=== PATIENT | male | born 2005 | race Caucasian/White ===

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

== ENCOUNTER 2025-03-23 11:03 | Outpatient (CLI) | payer OTHER, SELFPAY ==
[2025-03-23 12:00] LABS: Hematocrit 47.6 % (42.0-52.0); Hemoglobin 15.6 g/dL (14.1-18.0); Immature Granulocytes % 0.3 %; Mean Corpuscular HGB Conc 32.8 g/dL (31.8-35.4); Mean Corpuscular Hemoglobin 27.9 pg (27.0-31.2); Mean Corpuscular Volume 85.2 fl (80-94); Nucleated Red Blood Cells % 0 %; Platelet Count 230 K/mm3 (142-424); Red Blood Count 5.59 M/mm3 (4.60-6.20); Red Cell Distribution Width-SD 39.9 fL; White Blood Count 7.9 K/mm3 (4.5-13.0)
[2025-03-23 12:23] LABS: Alanine Aminotransferase 49 U/L (12-78); Albumin Level 4.8 g/dl (3.5-5.0); Alkaline Phosphatase 125 U/L (38-126); Anion Gap 14.1 mEq/L (5-15); Aspartate Amino Transferase 39 U/L (17-59); Bilirubin,Direct 0.2 mg/dl (0.0-0.4); Bilirubin,Indirect 1.1 mg/dL (0.0-0.9); Bilirubin,Total 1.3 mg/dl (0.2-1.3); Bilirubin,Unconjugated 1.2 mg/dL (0.0-1.1); Blood Urea Nitrogen 21 mg/dl (9-20); Calcium 9.8 mg/dl (8.4-10.2); Carbon Dioxide 26 mmol/L (22.0-30.0); Chloride 103 mmol/L (98-107); Cholesterol 183 mg/dl (140-200); Creatinine,Serum 0.90 mg/dl (0.66-1.25); Estimated Glomerular Filt Rate 109 ml/min (>60); GFR (African American) 132 ML/MIN (>60); Glucose 85 mg/dl (74-100); HDL Cholesterol 48 mg/dl (40-60); Magnesium 1.9 mg/dl (1.6-2.3); Potassium 4.1 mmoL/L (3.5-5.1); Sodium 139 mmol/L (136-145); Total Protein,Serum 7.5 g/dl (6.3-8.2); Triglycerides 64 mg/dl (30-150)
[2025-03-23 12:39] LABS: Free T4 (Free Thyroxine) 1.47 ng/dl (0.78-2.19)
[2025-03-23 12:54] LABS: Thyroid Stimulating Hormone 3.41 uIU/mL (0.465-4.68)
== END 2025-03-23 23:59 | disposition home or self-care (01) ==
PROVIDERS: PCP Nurse Practitioner Family; Visit Provider Physician Assistant
DX: R07.9 Chest pain, unspecified (principal); R94.31 Abnormal electrocardiogram [ECG] [EKG]; R00.2 Palpitations
CPT/HCPCS: 36415; 80048; 80061; 80076; 83735; 84439; 84443; 85025; 93270

== ENCOUNTER 2025-04-06 12:42 | Outpatient (CLI) | payer OTHER, SELFPAY ==
--- OUTSIDE RECORDS SUMMARY | 2024-11-28 17:30 | XMS_ITS ---
Author Organization [facility] Address [address] [place] [address] Care Team Providers Care Vest Busheler Name Role Phone Yonny Chan Primary Care Provider [phone] Belinda Domingo Unavailable [phone] Migration, Provider Unavailable Unavailable Allergies Allergen (clinical drug ingredient) Drug/Non Drug Allergy documented on EMR Reaction Allergy Type Onset Date Status amoxicillin / clavulanate Augmentin rash Drug Allergy Active amoxicillin Amoxicillin rash Drug Allergy Act tanya sulfamethoxazole / trimethoprim Bactrim rash Drug Allergy Active REASON FOR VISIT [facility] Conversion Encounter Medications Medication SIG (Take, Route, Frequency, Duration) Notes Start Date End Date Status Fluconazole 100 MG 1 tab(s) orally once a day; Duration: 5 days 04/25/2020 Active LOTRIMIN AF CREAM FOR RINGWORM 1% 1 MORENA APPLIED TOPICALLY 2 TIMES A DAY; Duration: 14 DAYS *Please review for potential replacement for e-prescription and drug interaction check* 04/25/2020 Active Encounters Encounter Location Date Provider Diagnosis [facility] [address] [facility] [address] [place] [address] 11/28/2024 Provider Migration Tinea cruris B35.6 Assessments Encounter Date Diagnosis (ICD Code) Assessment Notes Treatment Notes Treatment Clinical Notes Section Notes 11/28/2024 Tinea cruris (ICD-10 - B35.6) Plan Of Treatment Medication Medication Name Sig Start Date Stop Date Notes Fluconazole 100 MG 1 tab(s) orally once a day; Duration: 5 days 04/25/2020 LOTRIMIN AF CREAM FOR RINGWORM 1% 1 MORENA APPLIED TOPICALLY 2 TIMES A DAY; Duration: 14 DAYS 04/25/2020 *Please review for potential replacement for e-prescription and drug interaction check* Progress Notes * Santi KIM WDOB:2005 (19 yo M)Acc No.[id number]:11/28/2024 Patient: Santi PAREDES W Provider: Cyril Bentley :2005 A ge:19 Y S ex:Male Date:11/28/2024 Address:[address] [place] [address] [address] [id number] Pcp:Yonny Chan Subjective: * Chief Complaints: * 1 . [facility]. * Medical History: * Allergies: B actrim: rash, Amoxicillin: rash, Augmentin: rash . Objective: * Vitals: Assessment: * Assessment: 1. Piedad alonso - B35.6 Plan: * Treatment: * * Electronic signature of Prov ider Migration on 04/06/2025 at 12:44 PM EDT Sign off status: Pending * Provider: Cyril Bentley Date: 11/28/2024 Generated for Mary terrazas/Jose Antonio/Srideviitting on: 0 04/06/2025 12:44 PM EDT
--- OUTSIDE RECORDS SUMMARY | 2025-04-06 12:44 | XMS_ITS | Patient Health Record ---
Author Organization [facility] Address [address] [place] [address] Care Team Providers Care Casino Enforcement Agent Name Role Phone Yonny Chan Primary Care Provider Belinda Domingo Unavailable [phone] Migration, Provider Unavailable Unavailable Allergies Allergen (clinical drug ingredient) Drug/Non Drug Allergy documented on EMR Reaction Allergy Type Onset Date Status amoxicillin / clavulanate Augmentin rash Drug Allergy Active amoxicillin Amoxicillin rash Drug Allergy Act tanya sulfamethoxazole / trimethoprim Bactrim rash Drug Allergy Active Medications Medication SIG (Take, Route, Frequency, Duration) Notes Start Date End Date Status Fluconazole 100 MG 1 tab(s) orally once a day; Duration: 5 days 04/25/2020 Active LOTRIMIN AF CREAM FOR RINGWORM 1% 1 MORENA APPLIED TOPICALLY 2 TIMES A DAY; Duration: 14 DAYS *Please review for potential replacement for e-prescription and drug interaction check* 04/25/2020 Active Immunizations Vaccine Route Administration Date Status Comme nts FluMist IN intranasal 06/03/2012 Administered Problems Problem Type SNOMED Code ICD Code Onset Dates Problem Status W/U Status Risk Notes Problem Oppositional defiant disorder (03736985) Oppositional defiant disorder (F91.3) Active confirmed Problem Morbid obesity (677907336) Morbid obesity (E66.01) Active confirmed Problem Attention deficit hyperactivity disorder (866120626) ADHD (attention deficit hyperactivity disorder), combined type (F90.2) Active confirmed Problem Allergic rhinitis (58094210) Chronic allergic rhinitis (J30.9) Active confirmed Problem Exacerbation of mild persistent asthma (083982932) Mild intermittent asthma with acute exacerbation (J45.21) Active confirmed Problem Atopic dermatitis (06972504) Atopic dermatitis, unspecified type (L20.9) Active confirmed Encounters Encounter Location Date Provider Diagnosis [facility] [address] [place], [place] [address] 11/28/2024 Provider Migration Tinea cruris B35.6 Assessments Encounter Date Diagnosis (ICD Code) Assessment Notes Treatment Notes Treatment Clinical Notes Section Notes 11/28/2024 Tinea cruris (ICD-10 - B35.6) Plan Of Treatment Pending Test Test Name Order Date N-Stool WBC 08/29/2006 N-Stool C Difficile 08/29/2006 N-Stool Culture 08/29/2006 N-Stool O&P 08/29/2006 N-stool for giardia, crypto antigens, en teric pathogens 08/29/2006 EKG : In House 07/03/2010 N-stool enteric pathogens 08/29/2006 H-THROAT CULTURE 09/03/2011 H-STREP SCREEN (RAPID) 09/03/2011 M-Complete Blood Count Auto Diff 018 M-Comprehensive Metabolic Panel 07/28/20 18 M-Hemoglobin A1C 07/28/2018 M-Lipid Panel 07/28/2018 M-Free T4 (Free Thyroxine) 07/28/2018 M-Thyroid Stimulating Hormone 07/28/2018 Insurance Providers Payer Name Payer Address Payer Phone Subscriber Number Group Number Insured Name Patient Relationship to Insured Coverage Start Date Coverage End Date [employer] [facility] [address] [address] [place] [address] [id number] Santi Kim Self - patient is the insured Medical (General) History Medical History History ICD Code allergies asthma ADD Surgical History Surgery Date(Month/Year) Tonsillectomy/Adnoidectomy 2011
--- NOTE | 2025-04-06 13:00 | CA_ITS ---
APPROVED REPORT EXAM: Comprehensive 2D, Doppler, and color-flow Echocardiogram with contrast Financial Recording Clerk: NELLA Kilpatrick, RVS Ht: 5 ft 11 in Wt: 300lbs BSA: 2.51 BP: 133/73 mmHg Indications: Palpitations, Abn EKG, CP, Strong family H/O atrial septal defects Echo Enhancing Agent Indication: Rule Out Septal Defect Agent(s) / Amount(s) Used: Agitated Saline 45 cc 2D Dimensions Left Atrium 3.31 cm LA Volume 81.70 mL LA Volume Index 31.80 mL/m2 (M/F) 16-34 M-Mode Dimensions RVDd 3.55 cm (0.9-2.6) LA Diam 4.28 cm (1.9-4.0) LVDd 5.76 cm (3.5-5.7) LVDs 3.58 cm (3.5-5.7) IVSd 1.25 cm (0.6-1.1) PWd 0.81 cm (0.6-1.1) EF (Teich) 72.50% EPSs 0.24 cm FS 42.40% EDV (Teich) 195.40 mL TAPSE 3.11 (<1.7) ESV (Teich) 53.70 mL LV Diastology E Decel Time 210 (160-240 msec) E/A Ratio 2.23 MED A' 8.80 cm/s LAT A' 9.20 cm/s Aortic Valve OMI Index 1.07 cm2/m2 AoV Peak Patel. 153.0 (50-130 cm/s) AO Peak GR. 9.30 mmHg AO Mean GR. 4.50 (<5 mmHg) AO VTI 31.2 (18-25 cm) OMI (VTI) 2.74 (2.5-4.5 cm2) Mitral Valve MV A Velocity 65.0 (40-130 cm/s) E/A Ratio 2.23 Pulmonary Valve PV Peak Velocity 96.0 (50-150 cm/s) MD End VMAX 84.0 cm/s Left Ventricle The left ventricle is normal size. Left ventricular systolic function is normal. The left ventricular ejection fraction is within the normal range. There is normal left ventricular wall thickness. There is normal LV segmental wall motion. The left ventricular diastolic function is normal. LVEF is 55% Right Ventricle The right ventricle is normal size. The right ventricular systolic function is normal. Atria The left atrium size is normal. The right atrium size is normal. There is no color Doppler evidence of interatrial shunt. Agitated saline administration during sniff maneuver demonstrates presence of interatrial shunt. Aortic Valve The aortic valve opens well. There is no hemodynamically significant aortic valvular stenosis. No aortic regurgitation is present. Mitral Valve The mitral valve is normal in structure. No evidence of mitral valve stenosis. Trace mitral regurgitation is present. Tricuspid Valve The tricuspid valve leaflets are thin and pliable. Trace tricuspid regurgitation. There is insufficient TR jet to estimate RVSP. Pulmonic Valve The pulmonary valve is grossly normal in structure. Trace pulmonic valve regurgitation is present. Great Vessels The aortic root is normal in size. IVC is normal in size and collapses >50% with inspiration. Pericardium There is no pericardial effusion. Other Information Study Quality: Adequate Conclusion Normal biventricular systolic function. No significant valvular stenosis or regurgitation. Agitated saline administration during sniff maneuver demonstrates presence of interatrial shunt. Electronically signed by : Kandi Richardson MD 04/07/2025 12:28:49
== END 2025-04-06 23:59 | disposition home or self-care (01) ==
LOC: RT 12:42
PROVIDERS: PCP Nurse Practitioner Family; Visit Provider Physician Assistant
DX: Q21.10 Atrial septal defect, unspecified (principal); R07.9 Chest pain, unspecified; R94.31 Abnormal electrocardiogram [ECG] [EKG]; Z82.79 Family history of other congenital malformations, deformations and chromosomal abnormalities
CPT/HCPCS: 93306